=== PATIENT | female | born 1945 | race Caucasian/White ===

== ENCOUNTER → 2016-12-25 | Outpatient (CLI) | payer MEDICARE, OTHER ==
[~2016-12-25] MED LIST: ALDACTONE25 MG PO; AMBIEN5 MG PO; AMLODIPINE-BEN1 EAC4 PO; CALCIUM + D SO1 EACH PO; CALCIUM 600 +1 EACH PO; CRANBERRY TABL1 EACH PO; FISH OIL1 GM PO; GLUCOPHAGE1000 MG PO; GLUCOSAMINE CH1 EAC1 PO; GLUCOSAMINE-CH480 M1 PO; GOLYTELY PACKE1 EACH PO; HALFPRIN81 MG PO; INVOKANA100 MG PO; PROAIR HFA8.5 GM INH; SYNTHROID88 MCG PO; TRICOR145 MG PO; VITAMIN D31000 UNI1 PO; VITAMIN D31000 UNIT PO; ZITHROMAX250 MG PO; cranberry PO
== END | disposition short-term general hospital (02) ==
LOC: CLENT 09:37
DX: J38.7 Other diseases of larynx (principal); E11.9 Type 2 diabetes mellitus without complications; E03.9 Hypothyroidism, unspecified